=== PATIENT | male | born 1975 | race Two or more races ===

== ENCOUNTER 2023-10-18 02:24 | Emergency (ER) | payer OTHER ==
[~2023-10-18] VITALS: Ht 180.3 cm; Wt 87.1 kg
[2023-10-18 02:39] VITALS: BP 110/78; PULSE 96; RESP 16; TEMP 97.4
[2023-10-18 03:23] LABS: BASOPHILS # (AUTO) 0.1 K/uL (0.00-0.22); BASOPHILS % (AUTO) 0.7 % (0.0-2.0); EOSINOPHILS # (AUTO) 0.2 K/uL (0-0.4); EOSINOPHILS % (AUTO) 2.2 % (0.0-4.0); HEMATOCRIT 50.8 % (36-52); HEMOGLOBIN 17.5 g/dL (12.0-18.0); LYMPHOCYTES # (AUTO) 2.7 K/uL (2.0-11.5); LYMPHOCYTES % (AUTO) 28.2 % (20.5-51.1); MEAN CORPUSCULAR HEMOGLOBIN 31 pg (27-31); MEAN CORPUSCULAR HGB CONC 35 g/dL (33-37); MEAN CORPUSCULAR VOLUME 90.5 fL (80-94); MONOCYTES # (AUTO) 0.8 K/uL (0.8-1.0); MONOCYTES % (AUTO) 8.5 % (1.7-9.3); NEUTROPHILS # (AUTO) 5.7 K/uL (1.8-7.7); NEUTROPHILS % (AUTO) 60.4 % (42.2-75.2); PLATELET COUNT (AUTO) 158 K/uL (140-450); RED BLOOD CELL COUNT(AUTO) 5.61 MIL/uL (4.20-6.10); RED CELL DISTRIBUTION WIDTH 13.5 % (11.6-13.7); WHITE BLOOD COUNT (AUTO) 9.5 K/uL (4.8-10.8)
[2023-10-18] MEDS ORDERED: KETOROLAC 30 MG/ML VIAL IVP ONE (03:30)
[2023-10-18 03:36] LABS: ANION GAP 12.9 (8-16); CALCIUM 9.4 mg/dL (8.5-10.1); CARBON DIOXIDE 29.5 mmol/L (21-32); CREATININE 1.2 mg/dL (0.6-1.3); POTASSIUM 5.4 mmol/L (3.5-5.1)
[2023-10-18] MEDS ORDERED: ZOLP5TAB1 PO (05:38)
[2023-10-18] MEDS ORDERED: NAPR-54 PO (05:38)
[2023-10-18 05:54] VITALS: BP 97/62; PULSE 70; RESP 14; TEMP 97.4; O2SAT 98
== END 2023-10-18 05:54 | disposition home or self-care (01) ==
LOC: MED 02:24
DX: R51.9 Headache, unspecified (principal); G47.00 Insomnia, unspecified; Z79.899 Other long term (current) drug therapy
CPT/HCPCS: 36415; 70450; 71045; 80048; 84484; 85025; 93005; 96374; 99285; J1885

== ENCOUNTER 2024-04-29 15:57 | Emergency (ER) | payer OTHER ==
[~2024-04-29] VITALS: Ht 180.3 cm; Wt 88.0 kg
[~2024-04-29 15:57] MED LIST: NAPR-337 PO; ZOLP5TAB1 PO
[2024-04-29 16:06] VITALS: BP 145/84; PULSE 85; RESP 18; TEMP 98.3; O2SAT 99
[2024-04-29] MEDS: KETOROLAC 30 MG/ML VIAL IM ONE (16:41)
[2024-04-29] MEDS ORDERED: NAPR-1704 PO (16:54)
[2024-04-29 17:06] VITALS: BP 145/84; PULSE 85; RESP 18; TEMP 98.3; O2SAT 99
== END 2024-04-29 17:06 | disposition home or self-care (01) ==
LOC: MED 15:57
DX: R51.9 Headache, unspecified (principal); G47.00 Insomnia, unspecified; H93.19 Tinnitus, unspecified ear; I11.0 Hypertensive heart disease with heart failure; I50.9 Heart failure, unspecified; I25.10 Atherosclerotic heart disease of native coronary artery without angina pectoris; F17.210 Nicotine dependence, cigarettes, uncomplicated; Z95.5 Presence of coronary angioplasty implant and graft; Z79.899 Other long term (current) drug therapy
CPT/HCPCS: 96372; 99283; J1885